=== PATIENT | male | born 1990 | race Caucasian/White ===

== ENCOUNTER 2020-07-06 16:57 | Emergency (ER) | payer OTHER ==
[2020-07-06] MEDS ORDERED: NA CHLORIDE 0.9% 1,000 ML ONE (19:13)
[2020-07-06] MEDS ORDERED: ONDANSETRON 4 MG/2 ML VIAL ONE (19:13)
[2020-07-06] MEDS ORDERED: MORPHINE 4 MG/ML SYR ONE (19:13)
--- NOTE | 2020-07-06 19:41 | RAD REPORT ---
EXAM DESCRIPTION: CTAbdomen Pelvis W Contrast - 07/06/2020 7:34 pm CLINICAL HISTORY: Abdominal pain. ABD PAIN COMPARISON: No comparisons TECHNIQUE: Biphasic CT imaging of the abdomen and pelvis was performed with 100 ml non-ionic IV cont rast. All CT scans are performed using dose optimization technique as appropriate and may include automated exposure control or mA/KV adjustment according to patient size. FINDINGS: The lung bases are clear. The liver, spleen, pancreas, adrenal glands and kidneys are within normal limits. No bowel obstruction, free air, free fluid or abscess. The appendix is normal. No evidence of signi ficant lymphadenopathy. No suspicious bony findings. IMPRESSION: No acute intra-abdominal or pelvic finding.
[2020-07-06 20:01] LABS: Absolute Lymphocytes (CBC) 1.1 K/uL (0.7-4.9); Basophils % 0.4 % (0-1.3); Hematocrit 40.8 % (39.6-49.0); Lymphocytes % 10.6 % (15.3-44.8); MPV 10.6 fL (7.6-11.3); RBC Red Blood Cell Count 4.61 M/uL (4.33-5.43)
[2020-07-06 20:18] LABS: ALT/SGPT 191 U/L (12-78); AST/SGOT 298 U/L (15-37); Alkaline Phosphatase 112 U/L (45-117); BUN Blood Urea Nitrogen 7 mg/dL (7-18); Bicarbonate 29 mmol/L (21-32); Bilirubin Direct 0.2 mg/dL (0-0.2); Bilirubin Total 0.7 mg/dL (0.2-1.0); Glucose Level 97 mg/dL (74-106); Lipase 100 U/L (73-393); Potassium 3.7 mmol/L (3.5-5.1); Protein, Total 7.6 g/dL (6.4-8.2); Sodium Level 137 mmol/L (136-145)
--- NOTE | 2020-07-06 20:31 | EDPHYS ---
Physician Documentation [facility] Name: Hua Mcgraw Age: 30 yrs Sex: Male : 1990 Arrival Date: 07/06/2020 Time: 16:58 Bed 17 Private MD: LEONARDO Physician Kyle Lopez HPI: 07/06 20:21 This 30 yrs old Male presents to ER via Ambulatory with complaints of kb Abdominal Pain. 20:21 The patient presents with abdominal pain in the epigastric area. Onset: The kb symptoms/episode began/occurred 2 hour(s) ago. The symptoms do not radiate. Associated signs and symptoms: none. The symptoms are described as constant. Modifying factors: The symptoms are alleviated by nothing, the symptoms are aggravated by nothing. Severity of pain: At its worst the pain was moderate in the emergency department the pain is unchanged. The patient has experienced a previous episode. The patient has not recently seen a physician. Pt reports epigastric pain that radiates to back. States he has had this pain before about 2 years ago, had labs, CT and US all negative. Had hida scan that was normal. . Historical: - Allergies: 17:22 No Known Allergies; jl7 - Home Meds: 17:22 None [Active]; jl7 - PMHx: 17:22 None; jl7 - PSHx: 17:22 None; jl7 - Immunization history:: Adult Immunizations Client reports receiving the 1st dose of the Covid vaccine, June 28, 2020. - Social history:: Smoking status: Patient denies any tobacco usage or history of. ROS: 20:29 Constitutional: Negative for fever, chills, and weight loss, Cardiovascular: Negative kb for chest pain, palpitations, and edema, Respiratory: Negative for shortness of breath, cough, wheezing, and pleuritic chest pain. 20:29 Abdomen/GI: Positive for abdominal pain, Negative for nausea, vomiting, and diarrhea. 20:29 All other systems are negative. Exam: 20:29 Constitutional: This is a well developed, well nourished patient who is awake, alert, kb and in no acute distress. Head/Face: Normocephalic, atraumatic. Cardiovascular: Regular rate and rhythm with a normal S1 and S2. No gallops, murmurs, or rubs. No pulse deficits. Respiratory: Respirations even and unlabored. No increased work of breathing, no retractions or nasal flaring. Back: No spinal tenderness. No costovertebral tenderness. Full range of motion. Skin: Warm, dry with normal turgor. Normal color. MS/ Extremity: Pulses equal, no cyanosis. Neurovascular intact. Full, normal range of motion. Neuro: Awake and alert, GCS 15, oriented to person, place, time, and situation. Moves all extremities. Normal gait. Psych: Awake, alert, with orientation to person, place and time. Behavior, mood, and affect are within normal limits. 20:29 Abdomen/GI: Inspection: abdomen appears normal, Bowel sounds: normal, in all quadrants, Palpation: abdomen is soft and non-tender, in all quadrants. Vital Signs: 17:18 BP 115 / 88; Pulse 94; Resp 21; Temp 98.2; Pulse Ox 97% ; Weight 83.91 kg; Height 6 ft. jl7 (182.88 cm); Pain 6/10; 20:00 BP 123 / 86; Pulse 65; Resp 16; Pulse Ox 99% on R/A; jb4 17:18 Body Mass Index 25.09 (83.91 kg, 182.88 cm) jl7 MDM: 17:20 Patient medically screened. kb 20:27 Data reviewed: vital signs, nurses notes. Data reviewed: lab test result(s), radiologic kb studies. Data interpreted: Pulse oximetry: on room air is 97 %. Interpretation: normal. Counseling: I had a detailed discussion with the patient and/or guardian regarding: the historical points, exam findings, and any diagnostic results supporting the discharge/admit diagnosis, lab results, radiology results, the need for outpatient follow up, a director of first impressions, to return to the emergency department if symptoms worsen or persist or if there are any questions or concerns that arise at home. 07/06 17:21 Order name: Basic Metabolic Panel kb 07/06 17:21 Order name: CBC with Diff kb 07/06 17:21 Order name: Hepatic Function kb 07/06 17:21 Order name: Lipase; Complete Time: 20:19 kb 07/06 17:22 Order name: Basic Metabolic Panel; Complete Time: 20:19 EDMS 07/06 17:22 Order name: CBC with Automated Diff; Complete Time: 20:19 EDMS 07/06 17:21 Order name: IV Saline Lock; Complete Time: 19:02 kb 07/06 17:21 Order name: Labs collected and sent; Complete Time: 19:02 kb 07/06 17:21 Order name: CT Abd/Pelvis - IV Contrast Only; Complete Time: 19:43 kb 07/06 17:22 Order name: Liver (Hepatic) Function; Complete Time: 20:19 EDMS Administered Medications: 19:00 Drug: NS 0.9% 1000 ml Route: IV; Rate: 1000 ml; Site: right antecubital; bp 20:56 Follow up: Response: No adverse reaction; IV Status: Order to discontinue infusion; IV jb4 Intake: 850ml 19:05 Not Given (Patient Refused): Zofran (Ondansetron) 4 mg IVP once; over 2 minutes bp 19:05 Not Given (Patient Refused): morphine 4 mg IVP once; RASS on ADMIN: Combtv4, Very bp Agttd3, Agttd2, Rstlss1, AlertClm0, Drwsy-1, Lt Sdtn-2, Mod Sdtn-3, Dp Sdtn-4, UnArsble-5 Disposition: 07/06/20 20:30 Discharged to Home. Impression: Upper abdominal pain, unspecified. - Condition is Stable. - Discharge Instructions: Gastroesophageal Reflux Disease, Adult, Abdominal Pain, Adult, [id number]. - Prescriptions for Bentyl 20 mg Oral Tablet - take 1 tablet by ORAL route every 6 hours As needed; 20 tablet. - Medication Reconciliation Form, Thank You Letter, Antibiotic Education, Prescription Opioid Use form. - Follow up: Emergency Department; When: As needed; Reason: Worsening of condition. Follow up: Private Physician; When: 2 - 3 days; Reason: Recheck today's complaints, Continuance of care, Re-evaluation by your physician. Addendum: 07/08/2020 09:59 Co-signature as Attending Physician, Kyle Lopez MD I agree with the assessment and c guillaume plan of care. Signatures: Dispatcher [employer] EDMS Yandy Kim, NEON TECHNICIAN-C ELENA-Kyle Murillo MD MD cha Bryson, James, RN RN jb4 Rubén Guadalupe RN RN jl7 Mikey Raymundo RN RN bp Corrections: (The following items were deleted from the chart) 07/06 20:57 20:30 07/06/2020 20:30 Discharged to Home. Impression: Upper abdominal pain, jb4 unspecified. Condition is Stable. Forms are Medication Reconciliation Form, Thank You Letter, Antibiotic Education, Prescription Opioid Use. Follow up: Emergency Department; When: As needed; Reason: Worsening of condition. Follow up: Private Physician; When: 2 - 3 days; Reason: Recheck today's complaints, Continuance of care, Re-evaluation by your physician. kb
--- NOTE | 2020-07-06 20:31 | ER ---
Nurse's Notes [facility] Name: Hua Mcgraw Age: 30 yrs Sex: Male : 1990 Arrival Date: 07/06/2020 Time: 16:58 Bed 17 Private MD: Diagnosis: Upper abdominal pain, unspecified Presentation: 07/06 17:18 Chief complaint: Patient states: Ate pizza and had a couple of beers, reports jl7 epigastric pain that radiate to back, started about an hour ago. Coronavirus screen: Client denies travel out of the [place] in the last 14 days. At this time, the client does not indicate any symptoms associated with coronavirus-19. Ebola Screen: No symptoms or risks identified at this time. Initial Sepsis Screen: Does the patient meet any 2 criteria? No. Patient's initial sepsis screen is negative. Does the patient have a suspected source of infection? No. Patient's initial sepsis screen is negative. Risk Assessment: Do you want to hurt yourself or someone else? Patient reports no desire to harm self or others. Onset of symptoms was July 06, 2020 at 16:00. Care prior to arrival: None. 17:18 Method Of Arrival: Ambulatory 7 17:18 Acuity: CLARISSE 3 jl7 Triage Assessment: 17:22 General: Appears in no apparent distress. uncomfortable, Behavior is cooperative, jl7 appropriate for age, anxious. Pain: Complains of pain in epigastric area, right upper quadrant and left upper quadrant Pain currently is 6 out of 10 on a pain scale. at worst was 8 out of 10 on a pain scale. GI: Reports epigastric pain. Historical: - Allergies: 17:22 No Known Allergies; jl7 - Home Meds: 17:22 None [Active]; jl7 - PMHx: 17:22 None; jl7 - PSHx: 17:22 None; jl7 - Immunization history:: Adult Immunizations Client reports receiving the 1st dose of the Covid vaccine, June 28, 2020. - Social history:: Smoking status: Patient denies any tobacco usage or history of. Screenin:00 Abuse screen: Denies threats or abuse. Denies injuries from another. Nutritional bp screening: No deficits noted. Tuberculosis screening: No symptoms or risk factors identified. Fall Risk None identified. Assessment: 18:30 General: SEE TRIAGE NOTE. bp 19:30 Reassessment: Patient appears in no apparent distress at this time. Patient and/or jb4 family updated on plan of care and expected duration. Pain level reassessed. Patient is alert, oriented x 3, equal unlabored respirations, skin warm/dry/pink. PT back from Radiology. 20:54 Reassessment: Patient appears in no apparent distress at this time. Patient and/or jb4 family updated on plan of care and expected duration. Pain level reassessed. Patient is alert, oriented x 3, equal unlabored respirations, skin warm/dry/pink. Vital Signs: 17:18 BP 115 / 88; Pulse 94; Resp 21; Temp 98.2; Pulse Ox 97% ; Weight 83.91 kg; Height 6 ft. jl7 (182.88 cm); Pain 6/10; 20:00 BP 123 / 86; Pulse 65; Resp 16; Pulse Ox 99% on R/A; jb4 17:18 Body Mass Index 25.09 (83.91 kg, 182.88 cm) jl7 ED Course: 16:58 Patient arrived in ED. ds1 17:00 Yandy Kim FNP-C is PHCP. kb 17:00 Kyle Lopez MD is Attending Physician. kb 17:21 Triage completed. jl7 17:22 Arm band placed on right wrist. jl7 18:31 Mikey Raymundo, RN is Primary Nurse. bp 19:00 Patient has correct armband on for positive identification. Bed in low position. Call bp light in reach. Side rails up X2. 19:00 Inserted saline lock: 20 gauge in right antecubital area, using aseptic technique. bp Blood collected. 19:34 CT Abd/Pelvis - IV Contrast Only In Process Unspecified. EDMS 19:44 Primary Nurse role handed off by Mikey Raymundo, RN mw2 20:08 Fredy Jarvis, RN is Primary Nurse. jb4 20:56 No provider procedures requiring assistance completed. IV discontinued, intact, jb4 bleeding controlled, No redness/swelling at site. Pressure dressing applied. Administered Medications: 19:00 Drug: NS 0.9% 1000 ml Route: IV; Rate: 1000 ml; Site: right antecubital; bp 20:56 Follow up: Response: No adverse reaction; IV Status: Order to discontinue infusion; IV jb4 Intake: 850ml 19:05 Not Given (Patient Refused): Zofran (Ondansetron) 4 mg IVP once; over 2 minutes bp 19:05 Not Given (Patient Refused): morphine 4 mg IVP once; RASS on ADMIN: Combtv4, Very bp Agttd3, Agttd2, Rstlss1, AlertClm0, Drwsy-1, Lt Sdtn-2, Mod Sdtn-3, Dp Sdtn-4, UnArsble-5 Intake: 20:56 IV: 850ml; Total: 850ml. jb4 Outcome: 20:30 Discharge ordered by . emmie 20:56 Discharged to home ambulatory. jb4 20:56 Condition: stable 20:56 Discharge instructions given to patient, Instructed on discharge instructions, follow up and referral plans. medication usage, Demonstrated understanding of instructions, follow-up care, medications, Prescriptions given X 1. 20:57 Patient left the ED. jb4 Signatures: Dispatcher [employer] EDMS Yandy Kim, ELENA-C MANAGER OPERATIONAL-Mindy Sheridan ds1 Fredy Jarvis, RN RN jb4 Rubén Guadalupe RN RN jl7 Mikey Raymundo, RN RN bp Johanne Rahman mw2 Corrections: (The following items were deleted from the chart) 19:05 19:00 Zofran (Ondansetron) 4 mg IVP in right antecubital bp bp 19:05 19:00 morphine 4 mg IVP in right antecubital bp bp
[2020-07-06 21:01] VITALS: TEMP 98.2
[2020-07-06 21:03] VITALS: BP 123/86; O2SAT 99
== END 2020-07-06 20:57 | disposition home or self-care (01) ==
LOC: ER 16:57
DX: R10.13 Epigastric pain (principal)
CPT/HCPCS: 85025; 80048; 36415; 82565; 80076; 83690; 74177; Q9967; J7030; J2405; 96360; 96361; 99284